=== PATIENT | male | born 1960 | race Caucasian/White ===

== ENCOUNTER 2017-11-23 08:37 | Inpatient (IN) | payer OTHER, MEDICAID, MEDICARE ==
[~2017-11-23] VITALS: Ht 188 cm; Wt 136.5 kg
[~2017-11-23 08:37] MED LIST: ADVA230A INH; ALBUAER3 INH; ALPR2TAB3 PO; AMLO5TAB2 PO; ATOR40TA16 PO; DOXY100C PO; FLUT1SPR14 EACH NARE; GLIM4TAB PO; HYDR-3583 PO; LISI20TA PO; METF1000 PO; METO50TA PO; METR28.4 TOPICAL; OMEP20TA93 PO; SPIRCAP INH; TIZA4TAB PO
[2017-11-23] MEDS ORDERED: POVIDONE IODINE 5% (ANTISEPSIS KIT) 4 APPLICATIONS EACH NARE PRN (09:30)
[2017-11-23] MEDS ORDERED: CHLORHEXIDINE GLUCONATE 2 % 1 PACK (2 CLOTHS) TOPICAL PRN (09:30)
[2017-11-23] MEDS ORDERED: LACTATED RINGER'S 1000 ML IV PRN (09:30)
[2017-11-23] MEDS ORDERED: VANCOMYCIN 1000 MG/NS 250 ML (for <70 kg) IV SCH ×2 (09:30)
[2017-11-23] MEDS ORDERED: SODIUM CHLORID 0.9% 500 ML IV PRN (09:30)
[2017-11-23] MEDS ORDERED: ceFAZolin 2 GM PREMIX 50 ML IV SCH (09:30)
[2017-11-23] MEDS ORDERED: CHLORHEXIDINE GLUCONATE 4% SOLN 120 ML BTL TOPICAL SCH (09:30)
[2017-11-23] MEDS ORDERED: METOPROLOL TARTRATE 25 MG TAB PO PRN (09:30)
[2017-11-23] MEDS ORDERED: ACETAMINOPHEN 1000 MG/100 ML 100 ML IV ONE (10:46)
[2017-11-23] MEDS ORDERED: PROPOFOL 500 MG/50 ML INJ 250 ML ONE (10:46)
[2017-11-23] MEDS ORDERED: HYDROmorphone HCL PF 2 MG/ML VIAL ONE (10:47)
[2017-11-23] MEDS ORDERED: GENTAMICIN SULFATE 80 MG/2 ML VIAL ONE (11:50)
[2017-11-23] MEDS ORDERED: BUPIVACAINE/EPINEPHRINE 0.25% PF 30 ML VIAL ONE (11:50)
[2017-11-23] MEDS ORDERED: GELATIN 12 MM/7 MM FOAM ONE (13:56)
[2017-11-23] MEDS ORDERED: BETAMETHASONE SOD PHOS/ACETATE SUSP 30 MG/5 ML VIAL ONE (13:57)
[2017-11-23] MEDS ORDERED: ceFAZolin INJ 1,000 MG VIAL IV ONE (14:13)
[2017-11-23] MEDS ORDERED: MIDAZOLAM HCL 2 MG/2 ML VIAL ONE (15:02)
--- NOTE | 2017-11-23 15:03 | PD.OP ---
cc: James Gutierrez MD; Olu Gutierrez MD Operative Report Date of Surgery: Nov 23, 2017 Preoperative Diagnosis: Status post anterior cervical fusion C3 4 and C4 5. Osteophyte disc complex C5 6. Cervical spinal stenosis, C5 6. Bilateral cervical radiculopathy Postoperative Diagnosis: Same Procedure: Exploration of anterior cervical fusion with removal of segmental instrumentation, anterior C 3 to C6. Anterocervical discectomy decompression and bilateral foraminotomies, C5 6. Left anterior iliac crest bone graft Anesthesia: Gen. Surgeon: Olu Gutierrez Sales And Marketing Executive(s): ROSMERY Romero Operation and Findings: EBL: 100 cc INDICATIONS: Patient is a 57-year-old male status post 2 level ACDF at C4 5 and C3 4. The patient has progressive disease with mild kyphosis and central osteophyte disc complex with bilateral foraminal cyst at the level below, C5 6. The patient developing progressive weakness into the arms. He now presents for surgical treatment. NOTE: Marissa Romero PA-C was present for the entire surgical procedure as my certified surgical first assistant. In my medical opinion her skill and care was necessary for proper management of this patient PROCEDURE: The patient was brought to the operating room and anesthetized in the supine position. This patient was positioned supine on the radiolucent table. All pressure points were protected in the anterior cervical spine and iliac crest was scrubbed with alcohol followed by Hibiclens followed by ChloraPrep. A timeout was done and antibiotics were given within 1 hour time window. Lateral radiographic images were used identifying the proper level. A right anterior incision was made in line with skin creases. The platysma was opened in line with the incision. Deep dissection continued in the interval between the carotid sheath and the esophagus. The longus-coli muscles were lifted on both sides and retractors were positioned allowing good exposure. Lateral radiographic images were used to identify the proper level. There was an anterior plate made by Demar from C3 to C5. The position of the plate was such that allowing plate fixation at the C5 6 level was not likely to be successful. We explored up to the C3 4 level. Some bony osteophytes growing over the place which were removed with osteotomes and Rodriguez. The screw system was identified. There were anti-back out screws which were removed followed by removal of each of the 6 screws. Very carefully the plate was removed from the surrounding tissue taking great care to avoid any injury to the esophagus or surrounding tissues. The wound was irrigated copiously. Hemostasis was controlled. [place] style interosseous pins were placed at C5 and C6 allowing exposure to that level. The microscope was rolled into the field. A total discectomy was accomplished and posterior osteophytes were removed. The posterior longitudinal ligament and annulus was taken down. Bilateral foraminotomies were accomplished. The endplates were squared up anticipating later bone grafting. A blunt probe could be placed out each foramen without evidence of nerve root compromise. The left iliac crest was approached. A small stab incision was made allowing percutaneous access to the anterior iliac crest. Multiple cores of cancellous bone were harvested and taken to the back table to be used for later bone grafting. The wound was irrigated anesthetized and closed with 4-0 Vicryl followed by Dermabond. The case was turned over to Dr. James Gutierrez for fusion and instrumentation per his dictation. FINDINGS: There was evidence of a significant central stenosis with mild instability at the C5 6 level. The decompression was very satisfactory. Plate removal was tedious and time consuming but very successful to allow adequate exposure for proper fixation at the C5 6 level. NOTE: This surgery was performed in 2 parts. The first part was the neurosurgical decompression performed under the variable power stereo microscope by the undersigned in addition to the bone graft. The second portion of the surgery will be performed by the orthopedic spine component by co -surgeon, Dr. James Gutierrez for the anterior fusion with interbody cage and anterior plate. The skill of 2 surgeons was necessary to perform distinct separate procedural services as dictated above and dictated in the following operative note by Dr. James Gutierrez. Olu Gutierrez MD Nov 23, 2017 15:03
[2017-11-23] MEDS ORDERED: DO NOT ADM ANY ANTICOAGULANT DRUGS PRN (16:04)
[2017-11-23] MEDS ORDERED: ALUMINUM/MAGNESIUM/SIMETH 30 ML CUP PO PRN (16:30)
[2017-11-23] MEDS ORDERED: Post-op Orders (for Pharmacy) XX ONE (16:30)
[2017-11-23] MEDS ORDERED: ACETAMINOPHEN/HYDROcodone 325 MG/10 MG TAB PO PRN (16:30)
[2017-11-23] MEDS ORDERED: ALPRAZolam 1 MG TAB PO PRN (16:30)
[2017-11-23] MEDS ORDERED: PROMETHAZINE INJ 25 MG/ML VIAL IM PRN (16:30)
[2017-11-23] MEDS ORDERED: ONDANSETRON HCL 4 MG/2 ML VIAL IV PUSH PRN (16:30)
[2017-11-23] MEDS ORDERED: LACTATED RINGER'S 1000 ML INJ 1,000 ML IV SCH (17:00)
[2017-11-23] MEDS ORDERED: *morphine SULFATE 8 MG/ML PERIprocedure ONLY ONE (17:03)
[2017-11-23] MEDS ORDERED: GLUCAGON 1 MG/ML VIAL OTHER PRN (17:30)
[2017-11-23] MEDS ORDERED: ENALAPRILAT 1.25 MG/ML VIAL IV PUSH PRN (17:30)
[2017-11-23] MEDS ORDERED: DEXTROSE 50% IN WATER 50 ML VIAL(D50) IV PUSH PRN (17:30)
--- NOTE | 2017-11-23 17:42 | RADRPT ---
EXAM DATE/TIME: 11/23/2017 15:27 [place] COMPARISON: No previous studies available for comparison. INDICATIONS : ACDF. Done in operating room. MEDICAL HISTORY : None. SURGICAL HISTORY : C-spine fusion 4-5 ENCOUNTER: Initial ACUITY: 1 day PAIN SCORE: Non-responsive. LOCATION: c-spine FINDINGS: 3 fluoroscopic views of the cervical spine. Intradiscal hardware is noted at C3-4, C4-5, and C5-6 wit h anterior plate and screws at C5-6. Sagittal alignment is maintained. Osseous structures are grossly intact. CONCLUSION: 1. Spinal fixation, as above. Poncho Crawford MD on November 23, 2017 at 17:30 Board Certified Radiologist. This report was verified electronically.
[2017-11-23] MEDS: metFORMIN HCL 500 MG TAB PO SCH (17:44)
[2017-11-23] MEDS: ACETAMINOPHEN/HYDROcodone 325 MG/10 MG TAB PO PRN (17:45)
[2017-11-23 18:02] VITALS: BP 180/89; PULSE 67; RESP 17; TEMP 96.7; O2SAT 95
--- NOTE | 2017-11-23 18:12 | PD.CONS ---
HPI [facility] Consult Requested By Dr. Gutierrez Reason for Consult Opinion evaluation on treatment of patients hypertension and diabetes mellitus and hyperlipidemia, COPD Primary Care Physician Non-Staff Diagnoses: History of Present Illness 57-year-old white male with a previous history of chronic neck pain with cervical radiculopathy, hypertension, diabetes mellitus type 2, hyperlipidemia, COPD underwent an elective anterior cervical fusion with removal of segmental instrumentation with discectomy and decompression and foraminotomies today. At this time, patient does complain of neck pain with radiation to his left shoulder. He has no active shortness of breath at this time and does state that he uses inhalers for his history of COPD. He is not actively wheezing and states that he does smoke 1 pack of cigarettes per day. He does not actively use oxygen at home. He does have a history of sleep apnea however does not use CPAP. He reports he had a recent sinus surgery done last week and was put on antibiotics for possible sinus infection doxycycline or malaise by mouth twice a day along with a steroid nasal spray. He denies a history of constipation. He states his blood sugars usually adequately controlled well on oral medication. Review of Systems Constitutional: DENIES: Fatigue, Fever, Chills, Change in appetite Endocrine: DENIES: Heat/cold intolerance Eyes: DENIES: Blurred vision, Eye pain, Vision loss Ears, nose, mouth, throat: COMPLAINS OF: Nasal discharge, Running Nose, DENIES : Hearing loss, Throat pain, Ear Pain, Sinus Pain Respiratory: DENIES: Cough, Shortness of breath Cardiovascular: DENIES: Chest pain, Palpitations, Dyspnea on Exertion, Lower Extremity Edema Gastrointestinal: DENIES: Abdominal pain, Black stools, Bloody stools, Constipation, Diarrhea, Nausea, Vomiting Musculoskeletal: COMPLAINS OF: Joint pain, Neck pain, DENIES: Muscle aches, Stiffness Integumentary: DENIES: Rash Hematologic/lymphatic: DENIES: Bruising, Lymphadenopathy Immunologic/allergic: DENIES: Eczema Neurologic: DENIES: Headache, Localized weakness, Paresthesias Psychiatric: DENIES: Anxiety, Depression, Suicidal Ideation Past Family Social History Allergies: Coded Allergies: No Known Allergies (Verified Allergy, Unknown, 11/23/17) Past Medical History COPD Sleep apnea Chronic neck pain with cervical radiography Hypertension Hyperlipidemia Diabetes mellitus type 2 Past Surgical History Cyst removal Sinus surgery Previous history of cervical decompression and fusion Appendectomy Reported Medications Albuterol inhaler 2 puffs every 6 hours as needed for shortness of breath Alprazolam 2 mg by mouth twice a day as needed for anxiety Amlodipine 5 mg by mouth daily Atorvastatin 40 mg by mouth daily Doxycycline 100 mg by mouth twice a day Fluconasone Propionate 2 spray to each nostril daily Amaryl 5 mg by mouth daily Hydrocodone 10 one every 4 hours as needed for pain Lisinopril/HCTZ 20/12.5 mg by mouth twice a day Metformin thousand own as by mouth twice a day Metoprolol 50 mg by mouth twice a day Flagyl topical 1% gel daily Prilosec 20 mg by mouth daily Spiriva MCG's inhaler daily Tizanidine 4 mg by mouth 3 times a day Family History Mother had stomach cancer Father had hypertension and stroke Social History Smokes one pack of cigarettes on a daily basis. Physical Exam Vital Signs Vital Signs Date Time Temp Pulse Resp B/P (MAP) Pulse Ox O2 Delivery O2 Flow Rate FiO2 11/23/17 17:00 97.7 67 20 164/75 (104) 98 Nasal Cannula 3 11/23/17 16:45 68 20 173/75 (107) 95 Nasal Cannula 3 11/23/17 16:30 69 20 176/84 (114) 98 Nasal Cannula 3 11/23/17 16:07 97.7 75 22 178/82 (114) 95 Nasal Cannula 3 11/23/17 09:19 97.3 54 18 146/76 (99) 97 Physical Exam GENERAL: This is a well-nourished, well-developed patient, in no apparent distress. SKIN: No rashes, ecchymoses or lesions. Cool and dry. HEAD: Atraumatic. Normocephalic. No temporal or scalp tenderness. EYES: Pupils equal round and reactive. Extraocular motions intact. No scleral icterus. No injection or drainage. ENT: Nose without bleeding, purulent drainage or septal hematoma. Throat without erythema, tonsillar hypertrophy or exudate. Uvula midline. Airway patent. NECK: C-collar in place, bandage in place CARDIOVASCULAR: Regular rate and rhythm without murmurs, gallops, or rubs. RESPIRATORY: Slightly diminished breath sounds, no active wheezes GASTROINTESTINAL: Abdomen soft, non-tender, nondistended. Normoactive bowel sounds MUSCULOSKELETAL: Extremities without clubbing, cyanosis, or edema. Bilateral NATE hose with SCDs in place NEUROLOGICAL: Awake and alert to person place time and situation. Cranial nerves II through XII intact. Motor and sensory grossly within normal limits. Bilateral lower extremity motor strength out of 5, able to decorating inspector with both arms. Normal speech. Imaging Last Impressions Cervical Spine X-Ray 11/23/17 0000 Signed Impressions: Service Date/Time: November 15:27 - CONCLUSION: 1. Spinal fixation, as above. Poncho Crawford MD Assessment and Plan Assessment and Plan 1. Status post Exploration of anterior cervical fusion with removal of segmental instrumentation, anterior C 3 to C6 with Anterocervical discectomy decompression and bilateral foraminotomies, C5 6 - Continue postoperative care, pain control, physical therapy per orthopedic surgery. 2. Diabetes mellitus type 2 resume home metformin, monitor blood glucose levels with sliding scale insulin coverage 3. Hypertension resume amlodipine and lisinopril, IV Vasotec when necessary for any uncontrolled blood pressure 4. Hyperlipidemia -resume statin 5. COPD, chronic history - no acute exacerbations, continue home inhalers, nebulizers as needed, encourage incentive spirometry. 6. Tobacco usecessation counseling provided 7. DVT prophylaxis - bilateral SCDs, no chemical anticoagulation due to cervical surgery Swathi Patel MD Nov 23, 2017 18:12
[2017-11-23 20:50] VITALS: BP 121/59; PULSE 69; RESP 18; TEMP 98.1; O2SAT 98
[2017-11-23 20:54] VITALS: O2SAT 95
[2017-11-23] MEDS ORDERED: NON-FORMULARY DRUG (Fluticasone-Salmeterol 12 GM Inh (Advair Hfa 12 GM Inh) 2 PUFF) INH SCH (21:00)
[2017-11-23] MEDS ORDERED: PT:ADVAIR HFA INH SCH (21:00)
[2017-11-23] MEDS ORDERED: ZOLPIDEM TARTRATE 5 MG TAB PO PRN (21:00)
[2017-11-23] MEDS: METOPROLOL TARTRATE 50 MG TAB PO SCH (21:11)
[2017-11-23] MEDS: LISINOPRIL 20 MG TAB PO SCH (21:11)
[2017-11-23] MEDS: INSULIN ASPART SUPPLEMENTAL SCALE SQ SCH (21:12)
[2017-11-23] MEDS: MORPHINE SULFATE 2 MG/ML INJ IV PRN (21:13)
[2017-11-23] MEDS: DOXYCYCLINE HYCLATE 100 MG CAP PO SCH (21:31)
[2017-11-23] MEDS: HYDROCHLOROTHIAZIDE 12.5 MG CAP PO SCH (21:31)
[2017-11-23] MEDS: ALBUTEROL SULFATE 90 MCG/ACT HFA 8 GM INHALER INH PRN (21:32)
[2017-11-24] MEDS: ACETAMINOPHEN/HYDROcodone 325 MG/10 MG TAB PO PRN ×3 (00:14→13:09)
[2017-11-24 00:50] VITALS: BP 140/77; PULSE 77; RESP 18; TEMP 97.8; O2SAT 98
[2017-11-24] MEDS: MORPHINE SULFATE 2 MG/ML INJ IV PRN ×2 (02:00→10:20)
[2017-11-24 04:14] VITALS: BP 146/75; PULSE 68; RESP 18; TEMP 97.4; O2SAT 97
--- NOTE | 2017-11-24 07:21 | PD.ORT.PN ---
Subjective Subjective Remarks POD#1 C5-6 ACDF C/O post op neck pain No sob;no chest pain No c/o weakness Objective Vitals Vital Signs Date Time Temp Pulse Resp B/P (MAP) Pulse Ox O2 Delivery O2 Flow Rate FiO2 11/24/17 04:14 97.4 68 18 146/75 (98) 97 11/24/17 02:05 19 11/24/17 01:14 19 11/24/17 00:50 97.8 77 18 140/77 (98) 98 11/23/17 22:31 Nasal Cannula 2.00 11/23/17 20:54 95 Nasal Cannula 3.00 11/23/17 20:50 98.1 69 18 121/59 (79) 98 11/23/17 18:02 96.7 67 17 180/89 (119) 95 11/23/17 17:00 97.7 67 20 164/75 (104) 98 Nasal Cannula 3 11/23/17 16:45 68 20 173/75 (107) 95 Nasal Cannula 3 11/23/17 16:30 69 20 176/84 (114) 98 Nasal Cannula 3 11/23/17 16:07 97.7 75 22 178/82 (114) 95 Nasal Cannula 3 11/23/17 09:19 97.3 54 18 146/76 (99) 97 I/O 11/23/17 11/23/17 11/23/17 11/24/17 11/24/17 11/24/17 07:00 15:00 23:00 07:00 15:00 23:00 Intake Total 4540 ml 360 ml Output Total 1100 ml 1250 ml Balance 3440 ml -890 ml Intake Oral 240 ml 360 ml IV Total 4300 ml Output Urine Total 1050 ml 1250 ml Estimated Blood Loss 50 ml # Bowel Movements 0 0 Objective Remarks Motor + 5/5 UE/LE Dressings dry Brace fitting patient well Assessment & Plan Assessment and Plan Ortho stable Discharge home today James Gutierrez MD Nov 24, 2017 07:21
[2017-11-24 08:00] VITALS: BP 166/78; PULSE 62; RESP 17; TEMP 97.1; O2SAT 97
[2017-11-24] MEDS: INSULIN ASPART SUPPLEMENTAL SCALE SQ SCH ×2 (08:00→12:00)
[2017-11-24] MEDS: metFORMIN HCL 500 MG TAB PO SCH (09:00)
[2017-11-24] MEDS ORDERED: amLODIPine BESYLATE 5 MG TAB PO SCH (09:00)
[2017-11-24] MEDS ORDERED: PANTOPRAZOLE SOD 20 MG DELAYED RELEASE TAB PO SCH (09:00)
[2017-11-24] MEDS ORDERED: GLIMEPIRIDE 4 MG TAB PO SCH (09:00)
[2017-11-24] MEDS ORDERED: FLUTICASONE PROPIONATE 50 MCG/ACT 16 GM NASAL SPRAY EACH NARE SCH (09:00)
[2017-11-24] MEDS ORDERED: NON-FORMULARY DRUG (Omeprazole 20 MG) PO SCH (09:00)
[2017-11-24] MEDS ORDERED: TIOTROPIUM BROMIDE 18 MCG INH INH SCH (09:00)
[2017-11-24] MEDS ORDERED: MULTIVITAMINS/MINERALS THERAPEUTIC TAB PO SCH (09:00)
[2017-11-24] MEDS ORDERED: ATORVASTATIN 40 MG TAB PO SCH (09:00)
[2017-11-24] MEDS: DOXYCYCLINE HYCLATE 100 MG CAP PO SCH (10:16)
[2017-11-24] MEDS: HYDROCHLOROTHIAZIDE 12.5 MG CAP PO SCH (10:17)
[2017-11-24] MEDS: METOPROLOL TARTRATE 50 MG TAB PO SCH (10:17)
[2017-11-24] MEDS: LISINOPRIL 20 MG TAB PO SCH (10:17)
[2017-11-24] MEDS: ALBUTEROL SULFATE 90 MCG/ACT HFA 8 GM INHALER INH PRN (10:27)
--- NOTE | 2017-11-24 11:03 | HHI.PR ---
Subjective Remarks This is a pleasant 57-year-old white male with a previous history of chronic neck pain with cervical radiculopathy, hypertension, diabetes mellitus type 2, hyperlipidemia, COPD underwent an elective anterior cervical fusion with removal of segmental instrumentation with discectomy and decompression and foraminotomies POD #1, He does smoke 1 pack of cigarettes per day. He does not actively use oxygen at home. He does have a history of sleep apnea however does not use CPAP. He reports he had a recent sinus surgery done last week and was put on antibiotics for possible sinus infection doxycycline or malaise by mouth twice a day along with a steroid nasal spray. at this time stable seen by his Attending physician recommended for discharge later today, discussed with patient and nurse and no further recommendations given. Objective Vital Signs Date Time Temp Pulse Resp B/P (MAP) Pulse Ox O2 Delivery O2 Flow Rate FiO2 11/24/17 08:00 97.1 62 17 166/78 (107) 97 11/24/17 04:14 97.4 68 18 146/75 (98) 97 11/24/17 02:05 19 11/24/17 01:14 19 11/24/17 00:50 97.8 77 18 140/77 (98) 98 11/23/17 22:31 Nasal Cannula 2.00 11/23/17 20:54 95 Nasal Cannula 3.00 11/23/17 20:50 98.1 69 18 121/59 (79) 98 11/23/17 18:02 96.7 67 17 180/89 (119) 95 11/23/17 17:00 97.7 67 20 164/75 (104) 98 Nasal Cannula 3 11/23/17 16:45 68 20 173/75 (107) 95 Nasal Cannula 3 11/23/17 16:30 69 20 176/84 (114) 98 Nasal Cannula 3 11/23/17 16:07 97.7 75 22 178/82 (114) 95 Nasal Cannula 3 I/O 11/23/17 11/23/17 11/23/17 11/24/17 11/24/17 11/24/17 07:00 15:00 23:00 07:00 15:00 23:00 Intake Total 4640 ml 460 ml Output Total 1100 ml 1250 ml Balance 3540 ml -790 ml Intake Oral 240 ml 360 ml IV Total 4400 ml 100 ml Output Urine Total 1050 ml 1250 ml Estimated Blood Loss 50 ml # Bowel Movements 0 0 Imaging Last Impressions Cervical Spine X-Ray 11/23/17 0000 Signed Impressions: Service Date/Time: November 15:27 - CONCLUSION: 1. Spinal fixation, as above. Poncho Crawford MD Procedures Status post Exploration of anterior cervical fusion with removal of segmental instrumentation, anterior C 3 to C6 with Migel-cervical discectomy decompression and bilateral foraminotomies, C5-C6 Other Results No new laboratory Objective Remarks GENERAL: Obese patient in no acute distress. wearing cervical collar. SKIN: No rashes, ecchymoses or lesions. Cool and dry. HEAD: Atraumatic. Normocephalic. No temporal or scalp tenderness. EYES: Pupils equal round and reactive. Extraocular motions intact. No scleral icterus. No injection or drainage. ENT: Nose without bleeding, purulent drainage or septal hematoma. Throat without erythema, tonsillar hypertrophy or exudate. Uvula midline. Airway patent. NECK: C-collar in place, bandage in place CARDIOVASCULAR: Regular rate and rhythm without murmurs, gallops, or rubs. RESPIRATORY: Slightly diminished breath sounds, no active wheezes GASTROINTESTINAL: Abdomen soft, non-tender, nondistended. Normoactive bowel sounds MUSCULOSKELETAL: Extremities without clubbing, cyanosis, or edema. Bilateral NATE hose with SCDs in place NEUROLOGICAL: Awake and alert to person place time and situation, no focal deficits. Medications and IVs Current Medications Medications (Trade) Dose Ordered Sig/Leydi Route Start Time Stop Time Status Last Admin Lactated Ringer's 1,000 ml @ 30 mls/hr Q24H PRN IV 11/23/17 09:30 11/26/17 09:29 11/23/17 09:40 Sodium Chloride 500 ml @ 30 mls/hr [id number] PRN IV 11/23/17 09:30 11/26/17 09:29 (Lopressor) 25 mg STEMMING MACHINE OPERATOR PRN PO 11/23/17 09:30 11/26/17 09:29 (Betadine 5% Antisepsis Kit) 1 applic STEMMING MACHINE OPERATOR PRN EACH NARE 11/23/17 09:30 11/26/17 09:29 (Chlorhexidine 2% Cloth) 3 pack STEMMING MACHINE OPERATOR PRN TOPICAL 11/23/17 09:30 11/26/17 09:29 11/23/17 09:15 (Hibiclens 4% Top Soln) 1 applic ONCE TOPICAL 11/23/17 09:30 11/26/17 09:29 11/23/17 09:52 Cefazolin Sodium/ Dextrose 50 ml @ 100 mls/hr STEMMING MACHINE OPERATOR IV 11/23/17 09:30 11/26/17 09:29 11/23/17 13:00 Vancomycin HCl 1000 mg/Sodium Chloride 250 ml @ 250 mls/hr STEMMING MACHINE OPERATOR IV 11/23/17 09:30 11/26/17 09:29 11/23/17 12:18 (Proair Hfa Inh) 2 puff Q6H PRN INH 11/23/17 16:30 11/24/17 10:27 (Xanax) 2 mg BID PRN PO 11/23/17 16:30 (Norvasc) 5 mg DAILY PO 11/24/17 09:00 11/24/17 10:17 (Lipitor) 40 mg DAILY PO 11/24/17 09:00 11/24/17 10:17 (Amaryl) 4 mg DAILY PO 11/24/17 09:00 11/24/17 10:18 (Glucophage) 1,000 mg BIDPC PO 11/23/17 18:00 (Lopressor) 50 mg BID PO 11/23/17 21:00 11/24/17 10:17 (Spiriva Inh) 18 mcg DAILY INH 11/24/17 09:00 (Zanaflex) 4 mg TID PO 11/23/17 18:00 11/24/17 10:17 (Flonase Sumit Spr) 1 spray DAILY EACH NARE 11/24/17 09:00 11/24/17 10:19 (Prinivil) 20 mg BID PO 11/23/17 21:00 11/24/17 10:17 Lactated Ringer's 1,000 ml @ 80 mls/hr [id number] IV 11/23/17 17:00 11/23/17 17:00 Cefazolin Sodium 1000 mg/Sodium Chloride 100 ml @ 200 mls/hr Q8H IV 11/23/17 22:00 11/24/17 14:29 11/24/17 06:12 (Morphine Inj) 5 mg Q3H PRN IV 11/23/17 17:30 11/24/17 10:20 (Phenergan Inj) 25 mg Q4H PRN IM 11/23/17 16:30 (Theragran M Tab) 1 tab BID PO 11/24/17 09:00 01/23/18 08:59 11/24/17 10:17 (Zofran Inj) 4 mg Q6H PRN IV PUSH 11/23/17 16:30 (Mag-Al Plus Susp Liq) 30 ml Q6H PRN PO 11/23/17 16:30 (Ambien) 5 mg HS PRN PO 11/23/17 21:00 (Ackley 10-325 Mg) 1 tab Q6H PRN PO 11/23/17 16:30 (Ackley 10-325 Mg) 2 tab Q6H PRN PO 11/23/17 16:30 11/24/17 06:13 (D50w (Vial) Inj) 50 ml UNSCH PRN IV PUSH 11/23/17 17:30 (Glucagon Inj) 1 mg UNSCH PRN OTHER 11/23/17 17:30 (NovoLOG SUPPLEMENTAL SCALE) 1 ACHS SLIDING SCALE SQ 11/23/17 21:00 11/23/17 21:12 (Vasotec Inj) 1.25 mg Q6H PRN IV PUSH 11/23/17 17:30 11/23/17 17:58 (Protonix) 20 mg DAILY PO 11/24/17 09:00 11/24/17 10:18 (Vibramycin) 100 mg BID PO 11/23/17 21:00 11/24/17 10:16 Miscellaneous Information ALL NURSING DEPARTME... UNSCH PRN .XX 11/23/17 16:04 11/24/17 16:03 (Microzide) 12.5 mg BID PO 11/23/17 21:00 11/24/17 10:17 Patient Own Medication PT OWN MED: ADVAIR ... BID INH 11/23/17 21:00 Future Hold A/P Assessment and Plan 1. chronic Neck pain, Status post Explorationof anterior cervical fusion with removal of segmental instrumentation, anterior C3 to C6 wit atero-cervical discectomy decompression and bilateral foraminotomies, C5-C6 as per his attending physician today recommended for discharge Home 2. Obesity strongly recommended diet and exercise as outpatient, weight loss warranted 3. COPD by history no acute exacerbation to continue bronchodilators as needed 4. DM II on sliding scale stable 5. Hypertension mild uncontrol continue home medicines, mostly related to pain has not completely controlled 6. Hyperlipidemia by history to continue Statins 7. Tobacco dependence strongly recommended to stop smoking DVT prophylaxis - bilateral SCDs, no chemical anticoagulation due to cervical surgery Discharge Planning as per Attending physician. Yonis Simpson MD Nov 24, 2017 11:03
[2017-11-24 11:47] VITALS: O2SAT 96
[2017-11-24 12:00] VITALS: BP 143/75; PULSE 61; RESP 17; TEMP 96.7; O2SAT 95
[2017-11-24] MEDS ORDERED: HYDR-3366 PO (12:53)
--- NOTE | 2017-12-01 10:12 | MP ---
cc: ROBERT GUTIERREZ M.D. DATE OF SURGERY 11/23/2017 PREOPERATIVE DIAGNOSIS 1. C5-6 osteophyte disc complex, spinal stenosis. 2. Status post C3-C5 anterior cervical discectomy and fusion, Dr. Ahsan Simpson. 3. C4-5 spinal cord edema. 4. Bilateral cervical radiculitis. POSTOPERATIVE DIAGNOSIS 1. C5-6 osteophyte disc complex, spinal stenosis. 2. Status post C3-C5 anterior cervical discectomy and fusion, Dr. Ahsan Simpson. 3. C4-5 spinal cord edema. 4. Bilateral cervical radiculitis. PROCEDURE 1. C5-6 anterior interbody fusion. 2. C5-6 SpineNet ACC anterior cervical cage. 3. C5-6 SpineNet Rhausler anterior spinal instrumentation. SURGEON Fredrick Gutierrez M.D. ARBORIST CLIMBER Soni Andrew PA-C. ESTIMATED BLOOD LOSS 100 cc. DRAINS None. ANESTHESIA General. COMPLICATIONS None. CONDITION Stable. DETAILS OF PROCEDURE Dr. Olu Gutierrez and myself were co-surgeons. Dr. Olu Gutierrez performed the neuro decompressive portion of the procedure. I performed the orthopedic fusion and stabilization portion of the procedure. My graduate research assistant Soni Andrew PA-C was present for the entire surgical case. She was medically necessary for the entire case because of the complexity of the case and to facilitate the performance of the procedure. The ONCOLOGY TECHNICIAN at the back table did not have the skill set for this case to manipulate the instruments, e.g., multiple different soft tissue retractors, trial implants and permanent implants. Dr. Olu Gutierrez performed a right anterior exposure to the cervical spine. He removed the previous anterior spinal instrumentation. Examination of the interbody fusion showed the patient to have a very solid arthrodesis. He then performed a C5-6 anterior cervical discectomy, anterior decompression using the operating microscope and anterior iliac crest bone grafting. The endplates at C5-6 were prepared for fusion. The hyaline cartilage endplate was removed using angled curets and burs. A 6, 10 x 12 ACC cage was placed in the interspace. Anterior iliac crest bone grafting was used under fluoroscopic guidance for interbody fusion. The anterior osteophytes were removed using rongeurs and burs. A 21 mm length SpineNet Rhausler plate was used. Two screws were used in the vertebral body of C5 and C6. Also two tack pins were used to hold the plate in satisfactory position. Two screws were used in the vertebral body of C5 and C6. Each of the screws were drilled. Each screw was 14 mm in length, 4.0 mm in diameter, fixed-angle screws. Intraoperative fluoroscopy in AP and lateral planes confirmed satisfactory position of the bone graft at C5-6, satisfactory position and removal of the anterior spinal instrumentation at C3-C5, and satisfactory position of ACC cage and anterior spinal instrumentation. The wound was irrigated with copious amounts of sterile saline antibiotic solution. The wound itself was dry. The wound was closed in routine manner with multiple layers using 3-0 Vicryl. Skin was approximated with running subcuticular 4-0 Vicryl and Dermabond placed on the incision. Sterile dressings were applied. The patient was placed in a [place] cervical orthosis. The patient tolerated the procedure well and arrived in the recovery room in stable and satisfactory condition. MD JUDIT Vazquez/SARIAH /2:25 PM /9:47 AM
== END 2017-11-24 13:23 | disposition home or self-care (01) | DRG 473 ==
LOC: HSDI 08:37 → N06A 17:21
PROVIDERS: ADMIT Orthopaedic Surgery Orthopaedic Surgery of the Spine; ATTEND Orthopaedic Surgery Orthopaedic Surgery of the Spine
PROC: 0RT30ZZ Resection of Cervical Vertebral Disc, Open Approach (ICD-10-PCS; 2017-11-23)
PROC: 0RP104Z Removal of Internal Fixation Device from Cervical Vertebral Joint, Open Approach (ICD-10-PCS; 2017-11-23)
PROC: 01N10ZZ Release Cervical Nerve, Open Approach (ICD-10-PCS; 2017-11-23)
PROC: 0QB33ZZ Excision of Left Pelvic Bone, Percutaneous Approach (ICD-10-PCS; 2017-11-23)
PROC: 0RG10A0 Fusion of Cervical Vertebral Joint with Interbody Fusion Device, Anterior Approach, Anterior Column, Open Approach (ICD-10-PCS; principal; 2017-11-23 12:29)
DX: M48.02 Spinal stenosis, cervical region (principal); E66.01 Morbid (severe) obesity due to excess calories; I10 Essential (primary) hypertension; M25.78 Osteophyte, vertebrae; J44.9 Chronic obstructive pulmonary disease, unspecified; M54.12 Radiculopathy, cervical region; M40.292 Other kyphosis, cervical region; E11.9 Type 2 diabetes mellitus without complications; E78.5 Hyperlipidemia, unspecified; F17.210 Nicotine dependence, cigarettes, uncomplicated; G47.30 Sleep apnea, unspecified; Z98.1 Arthrodesis status; Z68.38 Body mass index [BMI] 38.0-38.9, adult; Z71.3 Dietary counseling and surveillance; Z79.84 Long term (current) use of oral hypoglycemic drugs
CPT/HCPCS: 72040; 76000; 82948; 94150; C1713; J0131; J0690; J0702; J1170; J1580; J1815; J2250; J2270; J3010; J3370; J7050; J7120

== ENCOUNTER 2017-12-12 06:28 | Inpatient (IN) | payer OTHER, MEDICARE, MEDICAID ==
[~2017-12-12] VITALS: Ht 188 cm; Wt 135.3 kg
[~2017-12-12 06:28] MED LIST changes: -DOXY100C PO; +HYDR-3366 PO; -HYDR-3583 PO; +OXYC1TAB35 PO
[2017-12-12] MEDS ORDERED: VANCOMYCIN 1000 MG/NS 250 ML (for <70 kg) IV SCH ×2 (07:00)
[2017-12-12] MEDS ORDERED: INSULIN HUMAN REGULAR 1,000 UNITS/10 ML VIAL SQ PRN (07:00)
[2017-12-12] MEDS ORDERED: METOPROLOL TARTRATE 25 MG TAB PO PRN (07:00)
[2017-12-12] MEDS ORDERED: CHLORHEXIDINE GLUCONATE 4% SOLN 120 ML BTL TOPICAL SCH (07:00)
[2017-12-12] MEDS ORDERED: SODIUM CHLORID 0.9% 500 ML IV PRN (07:00)
[2017-12-12] MEDS ORDERED: ceFAZolin 2 GM PREMIX 50 ML IV SCH (07:00)
[2017-12-12] MEDS ORDERED: CHLORHEXIDINE GLUCONATE 2 % 1 PACK (2 CLOTHS) TOPICAL PRN (07:00)
[2017-12-12] MEDS ORDERED: POVIDONE IODINE 5% (ANTISEPSIS KIT) 4 APPLICATIONS EACH NARE PRN (07:00)
[2017-12-12] MEDS ORDERED: LACTATED RINGER'S 1000 ML IV PRN (07:00)
[2017-12-12] MEDS ORDERED: ceFAZolin INJ 1,000 MG VIAL ONE (07:05)
[2017-12-12] MEDS ORDERED: SODIUM CHLORIDE 0.9% 20 ML VIAL ONE (07:05)
[2017-12-12] MEDS ORDERED: GENTAMICIN SULFATE 80 MG/2 ML VIAL ONE (07:05)
[2017-12-12] MEDS ORDERED: GELFOAM SIZE 100 ONE (07:05)
[2017-12-12] MEDS ORDERED: FAMOTIDINE 20 MG/2 ML VIAL ONE (07:11)
[2017-12-12] MEDS ORDERED: MORPHINE SULFATE 8 MG/ML INJ ONE (07:21)
[2017-12-12] MEDS ORDERED: ACETAMINOPHEN 1000 MG/100 ML 100 ML IV ONE (08:59)
[2017-12-12] MEDS ORDERED: HYDROmorphone HCL PF 2 MG/ML VIAL ONE (08:59)
[2017-12-12] MEDS ORDERED: ALBUTEROL SULFATE 90 MCG/ACT HFA 8 GM INHALER INH PRN (11:15)
[2017-12-12] MEDS ORDERED: OXYC1TAB36 PO (11:20)
--- NOTE | 2017-12-12 11:23 | PD.OP ---
cc: Olu Gutierrez MD Operative Report Date of Surgery: Dec 12, 2017 Preoperative Diagnosis: History of ACDF C3 4, C4 5, stable. Status post ACDF C5 6, recent At risk for failed fusion Postoperative Diagnosis: Same Procedure: Posterior cervical fusion, C5 6. Placement of intravenous facet cages with segmental instrumentation, C5 6. And left posterior iliac crest bone graft Anesthesia: Gen. Surgeon: Olu Gutierrez Clinical Research Scientist(s): ROSMERY Romero Operation and Findings: EBL: 50 cc INDICATIONS: Patient is a 57-year-old male status post previous fusion C3 to C5 was stable. The patient presented a significant condition at C5 6 level necessitating anterior cervical decompression and fusion recently. The patient is at risk of a failed fusion because of metabolic and physical conditions. The patient now presents for staged posterior cervical fusion NOTE: Marissa Romero PA-C was present for the entire surgical procedure as my first beater. In my medical opinion her skill and care was necessary for proper management of this patient PROCEDURE: The patient was brought the operating room and anesthetized in the supine position. The patient was positioned prone on a Maximiliano table. The arms were placed out along the side and taping was utilized to ensure adequate visualization. AP and lateral radiographic images were used identifying the proper level and allowing excellent exposure for purpose of the cervical fusion. A timeout was done and antibiotics were given within a routine time window. A small incision was made over the left iliac crest bone graft. A series of cores of bone graft were harvested with a special percutaneous device. The bone graft was taken to the back table to be mixed with stem cell bone graft for the later part of the case Using AP and lateral radiographs, skin markings were made. On the right side and 18-gauge spinal needle was placed down to the proper level. The left side a separate incision was made and we used the [employer] system. Exposure was afforded down to the proper level. Under visualization, a chisel was placed down to the C5 6 level. This was confirmed under radiographs to be in proper position. Exposure was satisfactory. This is placed down into the facet joint at that level. A decorticating device was utilized decorticating the bone of the facet above and below. A retractor was placed down over the access chisel allowing exposure to the joint and exposure to the articular cartilage. A drilling system was utilized removing cartilage and bone this region followed by a rasp. On the back table demineralized bone matrix was mixed with Nucel stem cells and a autogenous bone graft. A combination of both these were then paced placed into proper cages. The cages were impacted into the proper position and checked again under AP and lateral fluoroscopic images. A transfixation screw was placed into the cage having excellent fixation into the facet joint of the level above. The back side of the cage was filled with additional bone graft which was tamped into position. The retractor was removed. On the right side a separate incision was made. Using the likewise sequence of access to the same level, an incision was made allowing visualization for placement of an access chisel which was placed into the joint followed by decortication with excellent visualization. A final retractor was positioned holding this while we were able to drill and use the rasp. The joint was prepared and we created a space for the cage. The cage was filled with bone graft and impacted in proper position. A transfixation screw was fixated at that time and alignment was satisfactory. Additional bone graft placed along the posterior aspect of the cage and the facet joint and was tamped into position.. Intraoperative x-rays in AP and lateral plane showed excellent positioning and stabilization . The wound was irrigated copiously. Hemostasis was controlled. The fascia was closed with interrupted Vicryl suture skin and subcutaneous tissue with 3-0 Vicryl suture followed by Dermabond. The sponge count needle counts and sponge counts were all correct. The patient tolerated the procedure well as taken to the recovery room in satisfactory condition. FINDINGS: There was evidence of a fairly wide posterior facet joint at that level. We placed a 5 mm cage bilaterally instead of the normal 4 mm cage to ensure adequate fit and final stabilization. There was no complication that was appreciated. Olu Gutierrez MD Dec 12, 2017 11:23
[2017-12-12] MEDS ORDERED: ONDANSETRON HCL 4 MG/2 ML VIAL IV PUSH PRN (11:30)
[2017-12-12] MEDS ORDERED: Post-op Orders (for Pharmacy) XX ONE (11:30)
[2017-12-12] MEDS ORDERED: oxyCODONE/ACETAMINOPHEN 10 MG/325 MG TAB PO PRN (11:30)
[2017-12-12] MEDS ORDERED: BISACODYL 10 MG SUPP RECTAL PRN (11:30)
[2017-12-12] MEDS ORDERED: DO NOT ADM ANY ANTICOAGULANT DRUGS PRN (11:34)
[2017-12-12] MEDS: LACTATED RINGER'S 1000 ML INJ 1,000 ML IV SCH (11:40)
[2017-12-12] MEDS ORDERED: MIDAZOLAM HCL 2 MG/2 ML VIAL ONE (12:21)
[2017-12-12] MEDS ORDERED: *morphine SULFATE 10 MG/ML PERIprocedure ONLY ONE (12:51)
[2017-12-12 16:00] VITALS: BP 140/71; PULSE 80; RESP 18; TEMP 97.3; O2SAT 93
--- NOTE | 2017-12-12 16:00 | RADRPT ---
EXAM DATE/TIME: 12/12/2017 11:06 [facility] COMPARISON: [facility] ([facility]), November 23, 2017, 15:27. INDICATIONS : Posterior C5-6 fusion. MEDICAL HISTORY : Hypertension. Chronic obstructive pulmonary disease. Diabetes mellitus type II. Smoker. GERD. Art hritis. SURGICAL HISTORY : Appendectomy. C3-C6 with plate placed at C5-6. ENCOUNTER: Initial ACUITY: 1 day PAIN SCORE: Non-responsive. LOCATION: Cercvical spine. CONCLUSION: Fluoroscopic images obtained. Fusion of the C5-6 with intervertebral disc device. There is fusion of the facets at C5-6. Intervertebral disc device is also seen at C3-4 and C4-5 levels.. Narayan Dawson MD on December 12, 2017 at 15:54 Board Certified Radiologist. This report was verified electronically.
[2017-12-12] MEDS: MORPHINE SULFATE 4 MG/ML INJ IV PUSH PRN ×2 (16:17→21:13)
[2017-12-12] MEDS ORDERED: metFORMIN HCL 500 MG TAB PO SCH (18:00)
[2017-12-12] MEDS: oxyCODONE/ACETAMINOPHEN 10 MG/325 MG TAB PO PRN ×2 (18:52→23:40)
[2017-12-12 20:29] VITALS: BP 124/66; PULSE 88; RESP 18; TEMP 97.8; O2SAT 96
[2017-12-12] MEDS ORDERED: NON-FORMULARY DRUG (Lisinopril-Hctz 1 TAB) PO SCH (21:00)
[2017-12-12] MEDS ORDERED: ADVAIR INH SCH (21:00)
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
[2017-12-12] MEDS: HYDROCHLOROTHIAZIDE 25 MG TAB PO SCH (21:12)
[2017-12-12] MEDS: METOPROLOL TARTRATE 50 MG TAB PO SCH (21:12)
[2017-12-12] MEDS: LISINOPRIL 20 MG TAB PO SCH (21:13)
[2017-12-12 23:39] VITALS: O2SAT 98
[2017-12-12] MEDS: ALPRAZolam 1 MG TAB PO PRN (23:40)
[2017-12-13 00:10] VITALS: BP 122/64; PULSE 84; RESP 18; TEMP 97.4; O2SAT 96
[2017-12-13] MEDS: LACTATED RINGER'S 1000 ML INJ 1,000 ML IV SCH (02:30)
[2017-12-13] MEDS: oxyCODONE/ACETAMINOPHEN 10 MG/325 MG TAB PO PRN ×3 (03:36→12:29)
[2017-12-13 04:21] VITALS: BP 115/57; PULSE 72; RESP 18; TEMP 96.8; O2SAT 96
[2017-12-13] MEDS: MORPHINE SULFATE 4 MG/ML INJ IV PUSH PRN (06:42)
[2017-12-13 08:00] VITALS: BP 126/58; PULSE 67; RESP 17; TEMP 96.4; O2SAT 94
[2017-12-13] MEDS: ALPRAZolam 1 MG TAB PO PRN (08:38)
[2017-12-13] MEDS: HYDROCHLOROTHIAZIDE 25 MG TAB PO SCH (08:39)
[2017-12-13] MEDS: METOPROLOL TARTRATE 50 MG TAB PO SCH (08:40)
[2017-12-13] MEDS: LISINOPRIL 20 MG TAB PO SCH (08:40)
[2017-12-13] MEDS ORDERED: amLODIPine BESYLATE 5 MG TAB PO SCH (09:00)
[2017-12-13] MEDS ORDERED: MULTIVITAMINS/MINERALS THERAPEUTIC TAB PO SCH (09:00)
[2017-12-13] MEDS ORDERED: PANTOPRAZOLE SOD 20 MG DELAYED RELEASE TAB PO SCH (09:00)
[2017-12-13] MEDS ORDERED: TIOTROPIUM BROMIDE 18 MCG INH INH SCH (09:00)
[2017-12-13] MEDS ORDERED: FLUTICASONE PROPIONATE 50 MCG/ACT 16 GM NASAL SPRAY NASAL SCH (09:00)
[2017-12-13] MEDS ORDERED: DOCUSATE SODIUM 100 MG CAP PO SCH (09:00)
[2017-12-13] MEDS ORDERED: ATORVASTATIN 40 MG TAB PO SCH (09:00)
[2017-12-13] MEDS ORDERED: GLIMEPIRIDE 4 MG TAB PO SCH (09:00)
[2017-12-13 12:00] VITALS: BP 125/59; PULSE 61; RESP 17; TEMP 96.4; O2SAT 95
--- NOTE | 2017-12-13 12:44 | PD.ORT.PN ---
Subjective Subjective Remarks Doing well. His arms are 'fine'. He denies any new arm or leg pain. He has some throat soreness but can swallow liquids and pills. He is eager to go home. He denies any new CP or SOB. Objective Vitals Vital Signs Date Time Temp Pulse Resp B/P (MAP) Pulse Ox O2 Delivery O2 Flow Rate FiO2 12/13/17 09:42 16 12/13/17 08:00 96.4 67 17 126/58 (80) 94 12/13/17 04:21 96.8 72 18 115/57 (76) 96 12/13/17 00:10 97.4 84 18 122/64 (83) 96 12/12/17 23:39 98 12/12/17 20:29 97.8 88 18 124/66 (85) 96 12/12/17 16:00 97.3 80 18 140/71 (94) 93 12/12/17 15:00 98.2 75 17 145/70 (95) 96 Nasal Cannula 2 12/12/17 14:00 68 19 96/50 (65) 94 Nasal Cannula 2 12/12/17 13:30 65 18 11/56 (41) 97 Nasal Cannula 2 12/12/17 13:00 67 16 101/54 (70) 97 Nasal Cannula 2 I/O 12/12/17 12/12/17 12/12/17 12/13/17 12/13/17 12/13/17 07:00 15:00 23:00 07:00 15:00 23:00 Intake Total 1420 ml 628 ml 480 ml Output Total 150 ml 600 ml 1100 ml Balance 1270 ml 28 ml -620 ml Intake Oral 20 ml 380 ml 480 ml IV Total 1400 ml 248 ml Output Urine Total 100 ml 600 ml 1100 ml Estimated Blood Loss 50 ml # Bowel Movements 0 0 Procedures Posterior cervical fusion C56, DTRAX facet instrumentation, bone graft. 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 Pain controlled on PO meds. Throat sore but swallowing without much difficulty. Cervical collar 2-4 weeks. multimedia services coordinator but can remove for hygiene. Dry dressing changes beginning pod#2. Ok to shower at that time. Avoid driving while in collar. Ok to d/c home today. F/U in 2 weeks. Belen Waddell Dec 13, 2017 12:44
== END 2017-12-13 13:26 | disposition home or self-care (01) | DRG 473 ==
LOC: HSDI 06:28 → N06B 15:42 → UNDODISIN 12-13 12:04
PROVIDERS: ADMIT Orthopaedic Surgery Orthopaedic Surgery of the Spine; ATTEND Orthopaedic Surgery Orthopaedic Surgery of the Spine
PROC: 0QB33ZZ Excision of Left Pelvic Bone, Percutaneous Approach (ICD-10-PCS; 2017-12-12)
PROC: 0RG1071 Fusion of Cervical Vertebral Joint with Autologous Tissue Substitute, Posterior Approach, Posterior Column, Open Approach (ICD-10-PCS; principal; 2017-12-12 09:32)
DX: M48.02 Spinal stenosis, cervical region (principal); Z98.1 Arthrodesis status
CPT/HCPCS: 72040; 76000; 94150; C1713; J0131; J0690; J1170; J1580; J2250; J2270; J3010; J3370; J7050; J7120